=== PATIENT | male | born 1960 | race Caucasian/White ===

== ENCOUNTER 2016-09-14 02:38 | Inpatient (IN) | payer BC, MEDICAID, OTHER ==
[~2016-09-14] VITALS: Ht 184.2 cm; Wt 98.4 kg
--- NOTE | 2016-09-14 02:45 | NUR ---
PATIENT WAS BIB [facility] FROM HOME. PATIENT A & O X4.
--- NOTE | 2016-09-14 02:50 | NUR ---
MSE DONE AT BEDSIDE BY DR BISHOP.
[2016-09-14] MEDS ORDERED: ATEN25TA PO (03:07)
[2016-09-14] MEDS ORDERED: FURO80TA3 PO (03:07)
[2016-09-14] MEDS ORDERED: LEVO100T10 PO (03:07)
[2016-09-14] MEDS ORDERED: INSU3INS3 SQ ×2 (03:07)
[2016-09-14] MEDS ORDERED: CINA60TA PO (03:07)
[2016-09-14] MEDS ORDERED: ASPI81TA31 PO (03:07)
[2016-09-14] MEDS ORDERED: SIMV40TA5 PO (03:07)
[2016-09-14] MEDS ORDERED: COLC0.6C3 PO (03:07)
[2016-09-14] MEDS ORDERED: SEVE800T PO (03:07)
[2016-09-14] MEDS ORDERED: CALC0.5C2 PO (03:07)
[2016-09-14] MEDS ORDERED: LOSA100T15 PO (03:07)
[2016-09-14] MEDS ORDERED: ALLO100T PO (03:07)
[2016-09-14] MEDS ORDERED: APIX2.5T PO (03:07)
[2016-09-14 03:16] LABS: *OCCULT BLOOD STOOL POSITIVE (NEGATIVE)
[2016-09-14 03:19] LABS: BASOPHILS % (AUTO) 0.1 % (0.0-2.0); EOSINOPHILS # (AUTO) 0.2 K/uL (0.0-0.7); EOSINOPHILS % (AUTO) 1.4 % (0.0-7.0); HEMATOCRIT 21.2 % (36.7-47.1); LYMPHOCYTES # (AUTO) 1.6 K/uL (40.0-85.0); MEAN CORPUSCULAR HEMOGLOBIN 29.9 uug (23.8-33.4); MEAN CORPUSCULAR HGB CONC 33 g/dL (32.5-36.3); MEAN CORPUSCULAR VOLUME 90.9 fL (73.0-96.2); MONOCYTES # (AUTO) 1.2 K/uL (2.0-10.0); MONOCYTES % (AUTO) 7.4 % (0.0-11.0); NEUTROPHILS # (AUTO) 12.6 K/uL (1.8-8.9); NEUTROPHILS % (AUTO) 81.1 % (38.5-71.5); PLATELET COUNT (AUTO) 203 K/uL (152-348); RED CELL DISTRIBUTION WIDTH 19.2 % (12.1-16.2); WHITE BLOOD COUNT (AUTO) 15.6 K/uL (3.6-10.2)
[2016-09-14 03:21] LABS: RED BLOOD CELL COUNT(AUTO) 2.34 MIL/uL (4.06-5.63)
[2016-09-14 03:23] LABS: ALBUMIN 2.4 g/dL (3.4-5.0); BILIRUBIN,DIRECT 0.2 mg/dL (0.0-0.2); BILIRUBIN,TOTAL 1.1 mg/dL (0.2-1.0); POTASSIUM 5.3 mmol/L (3.5-5.1); TOTAL PROTEIN, SERUM 5.7 g/dL (6.4-8.2)
[2016-09-14 03:25] LABS: CREATININE 7.6 mg/dL (0.6-1.3)
[2016-09-14 03:28] LABS: BAND % (MANUAL) 5 % (0-10); LYMPHOCYTES % (MANUAL) 11 % (20-40); MONOCYTES % (MANUAL) 6 % (2-10); NEUTROPHILS % (MANUAL) 78 % (42-75)
[2016-09-14 03:29] LABS: ANISOCYTOSIS 2+; PLATELET ESTIMATE ADEQUATE
[2016-09-14] MEDS ORDERED: FUROSEMIDE 20 MG/2 ML VIAL IV ONE (03:30)
[2016-09-14] MEDS ORDERED: FUROSEMIDE 40 MG/4 ML VIAL ONE (04:06)
--- NOTE | 2016-09-14 08:08 | NUR ---
REPORT WAS GIVEN TO PILLOWCASE MAKER. PT WAS TRANSFERED TO TELEMETRY ROOM #207.
--- NOTE | 2016-09-14 08:25 | NUR ---
received from ER awake alert and oriented, with c/o of bloody diarrheal stools last night, none since, oriented to call button control and bed controls, routine admission care rendered, initial assessment done, fall risk initiated.
[2016-09-14 09:00] VITALS: BP 109/75
[2016-09-14] MEDS ORDERED: ACETAMINOPHEN 325 MG TABLET PO PRN (09:15)
[2016-09-14] MEDS ORDERED: ONDANSETRON 4 MG/2 ML VIAL IV PRN (09:15)
[2016-09-14] MEDS ORDERED: ZOLPIDEM 5 MG TABLET PO PRN (09:15)
[2016-09-14] MEDS ORDERED: HYDROCODONE/APAP 5-325MG TABLET PO PRN (09:15)
[2016-09-14] MEDS ORDERED: MAGNESIUM HYDROXIDE 30 ML LIQUID UDC PO PRN (09:15)
[2016-09-14] MEDS ORDERED: Z GUARD REMEDY PASTE 57 GM TUBE TOP PRN (09:15)
[2016-09-14 12:00] VITALS: BP 99/69
[2016-09-14] MEDS ORDERED: PANT40TA2 PO (13:05)
--- NOTE | 2016-09-14 15:52 | NUR ---
Transfer: Spoke with Poonam [[employer] [phone]] who confirmed the patient has been accepted to [facility] [[address] [place] [address]]. The accepting physician is Dr Godwin. The patient room number 714 bed 2. The RN can call for report at [phone]. Pt will be transported via Ambulance [[phone] Auth# [id number]]. Dr. Mariee made aware. Patient is agreeable with discharge plan.
[2016-09-14 16:00] VITALS: BP 106/70
--- NOTE | 2016-09-14 16:50 | NUR ---
Patient transferred to [facility] for next level care. Patient armbands removed. Telemetry removed. Patient vitals stable. No noted distress. Vitals stable. Patient calm and cooperative. Reported given to Candido. hose stripper transferred patient.
[2016-09-15] MEDS ORDERED: PANTOPRAZOLE SODIUM 40 MG TABLET.DR PO SCH (07:00)
== END 2016-09-14 16:50 | disposition short-term general hospital (02) | DRG 253 ==
LOC: ER 02:38 → TELE 06:38
PROC: 30233N1 Transfusion of Nonautologous Red Blood Cells into Peripheral Vein, Percutaneous Approach (ICD-10-PCS; principal; 2016-09-14)
DX: K62.5 Hemorrhage of anus and rectum (principal); I12.0 Hypertensive chronic kidney disease with stage 5 chronic kidney disease or end stage renal disease; E11.22 Type 2 diabetes mellitus with diabetic chronic kidney disease; N18.6 End stage renal disease; Z99.2 Dependence on renal dialysis; E78.5 Hyperlipidemia, unspecified; E03.9 Hypothyroidism, unspecified; E87.5 Hyperkalemia; I25.10 Atherosclerotic heart disease of native coronary artery without angina pectoris; M10.9 Gout, unspecified; Z88.1 Allergy status to other antibiotic agents; Z88.2 Allergy status to sulfonamides; D62 Acute posthemorrhagic anemia; D72.829 Elevated white blood cell count, unspecified; Z87.892 Personal history of anaphylaxis; Z79.82 Long term (current) use of aspirin; Z79.899 Other long term (current) drug therapy; M47.814 Spondylosis without myelopathy or radiculopathy, thoracic region; K59.00 Constipation, unspecified
CPT/HCPCS: 36415; 85025; 85730; 86850; 86900; 86901; 86920; 93005; 93307; A4663; J1940